=== PATIENT | female | born 1995 | race Asian ===

== ENCOUNTER 2023-01-01 19:42 | Emergency (ER) | payer OTHER ==
[~2023-01-01] VITALS: Ht 162.6 cm; Wt 76.2 kg
[2023-01-01 20:18] VITALS: BP 114/80; TEMP 98
[2023-01-01] MEDS ORDERED: AMOXICILLIN TRIHYDRATE 500 MG CAPSULE PO ONE (20:30)
[2023-01-01] MEDS ORDERED: IBUPROFEN 600 MG TABLET PO ONE (20:30)
[2023-01-01] MEDS ORDERED: AMOX500C2 PO (20:33)
[2023-01-01] MEDS ORDERED: IBUPROFEN 600 MG TABLET ONE (20:58)
[2023-01-01] MEDS ORDERED: AMOXICILLIN TRIHYDRATE 250 MG CAPSULE ONE (20:58)
[2023-01-01] MEDS ORDERED: IV NS 0.9% 1,000 ML BAG IV ONE (21:00)
[2023-01-01 21:01] VITALS: O2SAT 99
== END 2023-01-01 21:02 | disposition home or self-care (01) ==
LOC: ER 19:42
DX: K08.89 Other specified disorders of teeth and supporting structures (principal)